=== PATIENT | female | born 1995 | race African-American/Black ===

== ENCOUNTER 2016-11-21 22:20 | Emergency (ER) | payer SELFPAY ==
[~2016-11-21] VITALS: Ht 162.6 cm; Wt 123.8 kg
[~2016-11-21 22:20] MED LIST: DIPH25CA58 PO; FAMO-63 PO; PRED50TA PO
[2016-11-21 22:28] VITALS: BP 124/83
[2016-11-21] MEDS ORDERED: TRAM-48 PO (22:43)
--- NOTE | 2016-11-21 22:43 | PHYS DOC ---
Past Medical History Past Medical History: Asthma Past Surgical History: Tonsillectomy Additional Past Surgical Histo: Adenoids. Alcohol Use: None Drug Use: None Adult General Chief Complaint Chief Complaint: LOWER EXT PAIN HPI HPI Patient is a 21 year old female who presents with an indurated area on the left medial thigh for 3 weeks. Patient denies any fever. Denies any drainage from the area. Review of Systems Review of Systems Constitutional: Denies fever or chills [] Eyes: Denies change in visual acuity, redness, or eye pain [] HENT: Denies nasal congestion or sore throat [] Musculoskeletal: Denies back pain or joint pain [] Integument: Indurated area on the left inner thigh. Neurologic: Denies headache, focal weakness or sensory changes [] Endocrine: Denies polyuria or polydipsia [] Allergies Allergies Allergies Coded Allergies Type Severity Reaction Last Updated Verified perfume Allergy Intermediate rash, swelling 05/08/16 Yes Physical Exam Physical Exam Constitutional: Well developed, well nourished, no acute distress, non-toxic appearance. [] HENT: Normocephalic, atraumatic, bilateral external ears normal, oropharynx moist, no oral exudates, nose normal. [] Skin: Left medial lower thigh with the indurated area approximately 2 x 2 centimeters, the area is firm, slightly tender to touch but not erythematous or warm. Back: No tenderness, no CVA tenderness. [] Extremities: No tenderness, no cyanosis, no clubbing, ROM intact, no edema. [] Neurologic: Alert and oriented X 3, normal motor function, normal sensory function, no focal deficits noted. [] Psychologic: Affect normal, judgement normal, mood normal. [] Current Patient Data Vital Signs Vital Signs Date Time Temp Pulse Resp B/P (MAP) Pulse Ox O2 Delivery O2 Flow Rate FiO2 11/21/16 22:28 98.7 81 16 97 Room Air 98.7 11/21/16 22:28 124/83 (97) EKG EKG [] Radiology/Procedures Radiology/Procedures [] Course & Med Decision Making Course & Med Decision Making Pertinent Labs and Imaging studies reviewed. (See chart for details) Patient has what appears to be a cyst on the left inner thigh. Discharged with instructions to follow-up with a wood tile installer. Warm compresses recommended to the area. Ultram for pain. Boost[employer] was updated Dragon Disclaimer Dragon Disclaimer This electronic medical record was generated, in whole or in part, using a voice recognition dictation system. Departure Departure Impression: Primary Impression: Dermoid cyst of left lower extremity Disposition: HOME, SELF-CARE Condition: STABLE Referrals: NO PCP (PCP) DAY BAINS MD follow up in one week Patient Instructions: Cyst Removal Additional Instructions: You were seen with a swollen area on the left inner thigh suspicious of a cyst. Follow-up with the provided wood tile installer in one week. Take the prescribed medicines as needed for pain. Apply warm compresses to the area twice a day. Scripts Tramadol Hcl (ULTRAM) 50 Mg Tablet 1 TAB PO Q6HRS, #30 TAB Prov: KALIE LÓPEZ APRN 11/21/16 KALIE LÓPEZ APRN Nov 21, 2016 22:43
[2016-11-21] MEDS ORDERED: DIPHTH,PERTUSS(ACELL),TET TOX 0.5 ML DISP.SYRIN. VAX IM ONE (23:00)
== END 2016-11-21 22:46 | disposition home or self-care (01) ==
LOC: ER 22:20
DX: D36.7 Benign neoplasm of other specified sites (principal); J45.909 Unspecified asthma, uncomplicated; Z91.09 Other allergy status, other than to drugs and biological substances
CPT/HCPCS: 90471; 90715; 99283-25

== ENCOUNTER → 2017-01-13 | Emergency (ER) | payer SELFPAY ==
[~2017-01-13] VITALS: Ht 162.6 cm; Wt 129.3 kg
[~2017-01-13] MED LIST changes: +NAPR500T3 PO; +TRAM-48 PO
[2017-01-13 11:08] VITALS: BP 131/81
--- NOTE | 2017-01-13 11:57 | RAD ---
Exam performed: 3 views right index finger including single view hand. History: Patient caught index finger in the door handle with right finger pain. Date of service: 01/13/17. Comparison: None available 3 views right index finger including single view hand findings: Normal alignment is preserved. There is no acute fracture or dislocation. No soft tissue swelling or foreign body seen. Impression: Negative exam.
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
== END | disposition home or self-care (01) ==
LOC: ER 11:01
DX: S60.021A Contusion of right index finger without damage to nail, initial encounter (principal); Z91.048 Other nonmedicinal substance allergy status; W23.0XXA Caught, crushed, jammed, or pinched between moving objects, initial encounter; Y93.89 Activity, other specified; Y92.69 Other specified industrial and construction area as the place of occurrence of the external cause; Y99.8 Other external cause status
CPT/HCPCS: 73140; 99282; 99284

== ENCOUNTER 2017-03-08 07:11 | Emergency (ER) | payer OTHER ==
[~2017-03-08] VITALS: Ht 162.6 cm; Wt 123.8 kg
[~2017-03-08 07:11] MED LIST changes: -NAPR500T3 PO; +NAPR500T4 PO
[2017-03-08 07:20] VITALS: BP 130/82
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
[2017-03-08] MEDS ORDERED: CYCL10TA2 PO (08:52)
[2017-03-08] MEDS ORDERED: NAPR-695 PO (08:52)
== END 2017-03-08 09:05 | disposition home or self-care (01) ==
LOC: ER 07:11
DX: S00.83XA Contusion of other part of head, initial encounter (principal); Z91.048 Other nonmedicinal substance allergy status; V47.5XXA Car driver injured in collision with fixed or stationary object in traffic accident, initial encounter; Y93.I9 Activity, other involving external motion; Y92.410 Unspecified street and highway as the place of occurrence of the external cause; Y99.8 Other external cause status
CPT/HCPCS: 70486; 81025; 99284-25

== ENCOUNTER 2017-04-29 01:10 | Emergency (ER) | payer SELFPAY ==
[~2017-04-29] VITALS: Ht 162.6 cm; Wt 124.7 kg
[~2017-04-29 01:10] MED LIST changes: +CYCL10TA2 PO; +NAPR-695 PO
[2017-04-29 01:19] VITALS: BP 148/91
[2017-04-29] MEDS ORDERED: NAPR-683 PO (01:26)
[2017-04-29] MEDS ORDERED: CLIN300C8 PO (01:26)
[2017-04-29] MEDS ORDERED: HYDR-2758 PO (01:26)
--- NOTE | 2017-04-29 01:26 | PHYS DOC ---
Past Medical History Past Medical History: No Pertinent History Additional Past Medical Histor: sickle cell trait Past Surgical History: Tonsillectomy Additional Past Surgical Histo: Adenoids. Smoking: Cigarettes Alcohol Use: None Drug Use: None Adult General Chief Complaint Chief Complaint: DENTAL PROBLEM [facility] HPI Patient is a pleasant otherwise healthy 22-year-old female presents with increasing dental pain in the left lower jaw on the began more than 4 weeks ago. Patient noted decreased enamel to the lower portion of her left teeth on the lower jaw with localized tenderness to palpation with hot and cold foods. She denies any swelling to her face, denies any fevers, change in voice, ear pain, radiation to her neck. It is throbbing and comes and goes with no evidence of any other symptoms. Patient is new to the area has no primary care doctor Review of Systems Review of Systems Constitutional: Denies fever or chills [] Eyes: Denies change in visual acuity, redness, or eye pain [] HENT: Denies nasal congestion or sore throat [] Respiratory: Denies cough or shortness of breath [] Cardiovascular: No additional information not addressed in HPI [] GI: Denies abdominal pain, nausea, vomiting, bloody stools or diarrhea [] : Denies dysuria or hematuria [] Musculoskeletal: Denies neck pain or joint pain Integument: Denies rash or skin lesions [] Neurologic: Denies headache, focal weakness or sensory changes [] All other systems were reviewed and found to be within normal limits, except as documented in this note. Allergies Allergies Allergies Coded Allergies Type Severity Reaction Last Updated Verified perfume Allergy Intermediate rash, swelling 05/08/16 Yes Physical Exam Physical Exam Vital signs recorded on the chart patient noted to be mildly hypertensive Constitutional: Well developed, well nourished, no acute distress, non-toxic appearance. [] HENT: Normocephalic, atraumatic, bilateral external ears normal, oropharynx moist, no oral exudates, nose normal. Patient has a dental caries at tooth #18 with significant erosion to the enamel exposing the pulp. There is no evidence of gingivitis or gingival inflammation abscess or fluid collection patient has tenderness to palpation over the pulp percussion of the tooth[] Neck: Normal range of motion, no tenderness, supple, no stridor. [] Cardiovascular:Heart rate regular rhythm, no murmur [] Lungs & Thorax: Bilateral breath sounds clear to auscultation [] Skin: Warm, dry, no erythema, no rash. [] Neurologic: Alert and oriented X 3, Psychologic: Affect normal, judgement normal, mood normal. [] EKG EKG [] Radiology/Procedures Radiology/Procedures [] Course & Med Decision Making Course & Med Decision Making Pertinent Labs and Imaging studies reviewed. (See chart for details) []She presents with erosion to the enamel and obvious dental carry with pulpitis without abscess formation of the gingival area. Patient will be given a course of antibiotics and dental referral follow-up along with analgesics. discharge: I've spoken with the patient and/or caregivers. I've explained the patient's condition, diagnosis and treatment plan based on information available to me at this time. I've answered the patient's and/or caregivers questions and addressed any concerns. The patient and/or caregivers have a good understanding the patient's diagnosis, condition and treatment plan as can be expected at this point. Vital signs have been stabilized. The patient's condition is stable for discharge from the emergency department. The patient will pursue further outpatient evaluation with her primary care provider or other designated consulting physician as outlined in the discharge instructions. Patient and/or caregivers are agreeable to this plan of care and follow-up instructions have been explained in detail. The patient and/or caregivers have received these instructions in written format and expressed understanding of these discharge instructions. The patient and her caregivers are aware that if any significant change in condition or worsening of symptoms should prompt him to immediately return to this of the closest emergency department. If an emergent department is not readily available I would encourage him to call 911. Goldie Disclaimer Goldie Disclaimer This electronic medical record was generated, in whole or in part, using a voice recognition dictation system. Departure Departure Impression: Primary Impression: Dental caries Additional Impression: Dental caries into pulp Disposition: 01 HOME, SELF-CARE Condition: STABLE Referrals: NO PCP (PCP) Patient Instructions: Dental Caries, Dental Pain, Diet and Dental Disease, Hypertension Additional Instructions: discharge: I've spoken with the patient and/or caregivers. I've explained the patient's condition, diagnosis and treatment plan based on information available to me at this time. I've answered the patient's and/or caregivers questions and addressed any concerns. The patient and/or caregivers have a good understanding the patient's diagnosis, condition and treatment plan as can be expected at this point. Vital signs have been stabilized. The patient's condition is stable for discharge from the emergency department. The patient will pursue further outpatient evaluation with her primary care provider or other designated consulting physician as outlined in the discharge instructions. Patient and/or caregivers are agreeable to this plan of care and follow-up instructions have been explained in detail. The patient and/or caregivers have received these instructions in written format and expressed understanding of these discharge instructions. The patient and her caregivers are aware that if any significant change in condition or worsening of symptoms should prompt him to immediately return to this of the closest emergency department. If an emergent department is not readily available I would encourage him to call 911. Scripts Naproxen (NAPROSYN) 500 Mg Tablet 1 TAB PO BID, #14 TAB 1 Refill Prov: ROB SPARKS MD 04/29/17 Hydrocodone Bit/Acetaminophen (HYDROCODONE-APAP 5-325 ) 1 Each Tablet 1-2 TAB PO PRN Q6HRS Y for PAIN for 5 Days, #10 TAB 0 Refills Prov: ROB SPARKS MD 04/29/17 Clindamycin Hcl (CLINDAMYCIN HCL) 300 Mg Capsule 1 CAP PO TID, #30 CAP Prov: ROB SPARKS MD 04/29/17 Problem Qualifiers ROB SPARKS MD Apr 29, 2017 01:26
== END 2017-04-29 01:31 | disposition home or self-care (01) ==
LOC: ER 01:10
DX: K02.9 Dental caries, unspecified (principal); D57.3 Sickle-cell trait; F17.210 Nicotine dependence, cigarettes, uncomplicated; Z91.048 Other nonmedicinal substance allergy status
CPT/HCPCS: 99283

== ENCOUNTER 2017-05-27 07:51 | Emergency (ER) | payer SELFPAY ==
[2017-05-27 08:58] LABS: INFLUENZA A PATIENT NEGATIVE (NEGATIVE); INFLUENZA B PATIENT NEGATIVE (NEGATIVE); OBC FLU VALID
== END 2017-05-27 09:40 | disposition home or self-care (01) ==
LOC: ER 07:51
DX: J06.9 Acute upper respiratory infection, unspecified (principal); D57.3 Sickle-cell trait; J45.909 Unspecified asthma, uncomplicated; Z91.048 Other nonmedicinal substance allergy status
CPT/HCPCS: 87804; 87804-59; 99284

== ENCOUNTER 2017-07-11 20:57 | Emergency (ER) | payer SELFPAY ==
[2017-07-11] MEDS ORDERED: MORPHINE SULFATE 2 MG/ML DISP.SYRIN. IV/SQ (21:45)
[2017-07-11 22:45] LABS: ADD MAN DIFF? NO
[2017-07-11 22:47] LABS: BASO % 1 % (0-3); EOS # 0.1 x10^3/uL (0.0-0.7); EOS % 1 % (0-3); HEMATOCRIT 38.4 % (36.0-47.0); HEMOGLOBIN 13.7 g/dL (12.0-15.5); LYMPH % 32 % (24-48); MEAN CORPUSCULAR HEMOGLOBIN 29 pg (25-35); MEAN CORPUSCULAR HGB CONC 36 g/dL (31-37); MEAN CORPUSCULAR VOLUME 82 fL (79-100); MONO # 0.7 x10^3/uL (0.0-1.1); MONO % 7 % (0-9); NEUT # 5.6 x10^3uL (1.8-7.7); NEUT % 59 % (31-73); PLATELET COUNT 234 x10^3/uL (140-400); RED BLOOD COUNT 4.68 x10^6/uL (3.50-5.40); RED CELL DISTRIBUTION WIDTH 13.3 % (11.5-14.5); WHITE BLOOD COUNT 9.5 x10^3/uL (4.0-11.0)
[2017-07-11 22:51] LABS: URINE HCG POC HCG NEGATIVE (Negative)
[2017-07-11 22:51] LABS: BILIRUBIN,URINE NEGATIVE (NEG); CLARITY,URINE CLEAR; COLOR,URINE YELLOW; GLUCOSE,URINE NEGATIVE (NEG); NITRITE,URINE NEGATIVE (NEG); PROTEIN,URINE NEGATIVE (NEG-TRACE)
[2017-07-11 22:56] LABS: BACTERIA,URINE 0 /HPF (0-FEW); RBC,URINE OCC /HPF (0-2); SQUAMOUS EPITHELIAL CELL,UR MOD /LPF; WBC,URINE 0 /HPF (0-4)
[2017-07-11] MEDS: ONDANSETRON PF 4 MG/2 ML VIAL. IV (22:57)
[2017-07-11] MEDS: IV NORMAL SALINE 1000ML BAG 1,000 ML IV (22:58)
[2017-07-11 23:00] LABS: INR 1.2 (0.8-1.1); PARTIAL THROMBOPLASTIN TIME 28 SEC (24-38); PROTHROMBIN TIME PATIENT 14.5 SEC (11.7-14.0)
[2017-07-11 23:01] LABS: ANION GAP 8 (6-14); BLOOD UREA NITROGEN 11 mg/dL (7-20); CALCIUM 8.3 mg/dL (8.5-10.1); CARBON DIOXIDE 25 mmol/L (21-32); CHLORIDE 106 mmol/L (98-107); GFR 84.7; GLUCOSE 127 mg/dL (70-99); POTASSIUM 3.9 mmol/L (3.5-5.1); SODIUM 139 mmol/L (136-145)
[2017-07-11 23:07] LABS: ALBUMIN 3.3 g/dL (3.4-5.0); ALK PHOS 80 U/L (46-116); ALT (SGPT) 26 U/L (14-59); AST (SGOT) 17 U/L (15-37); DIRECT BILIRUBIN 0.1 mg/dL (0.0-0.2); LIPASE 91 U/L (73-393); TOTAL BILIRUBIN 0.4 mg/dL (0.2-1.0); TOTAL PROTEIN 7.3 g/dL (6.4-8.2)
[2017-07-11 23:26] LABS: CKMB MASS 1.6 ng/mL (0.0-3.6); CREATINE KINASE 158 U/L (26-192)
== END 2017-07-12 00:45 | disposition home or self-care (01) ==
LOC: ER 07-12 00:45
DX: R11.2 Nausea with vomiting, unspecified (principal); R19.7 Diarrhea, unspecified; D57.3 Sickle-cell trait; J45.909 Unspecified asthma, uncomplicated; Z91.048 Other nonmedicinal substance allergy status
CPT/HCPCS: 36415; 80048; 80076; 81001; 81025; 82553; 83690; 85025; 85610; 85730; 93005; 96361; 96374; 99285-25; J2405; J7030

== ENCOUNTER 2017-09-02 21:36 | Emergency (ER) | payer SELFPAY ==
[2017-09-02] MEDS: predniSONE 20 MG TABLET PO (21:57)
[2017-09-02] MEDS: diphenhydrAMINE HCL 25 MG CAPSULE PO (21:57)
[2017-09-02] MEDS: EPINEPHrine 1 MG/ML VIAL IM (22:00)
== END 2017-09-02 23:01 | disposition home or self-care (01) ==
LOC: ER 21:36
DX: T65.891A Toxic effect of other specified substances, accidental (unintentional), initial encounter (principal); L50.8 Other urticaria; D57.3 Sickle-cell trait; J45.909 Unspecified asthma, uncomplicated; Z91.048 Other nonmedicinal substance allergy status; Y92.89 Other specified places as the place of occurrence of the external cause
CPT/HCPCS: 96372; 99283; J0171; J7512; Q0163

== ENCOUNTER 2017-09-20 13:44 | Emergency (ER) | payer SELFPAY ==
[2017-09-20] MEDS: traMADol 50 MG TABLET PO (14:14)
== END 2017-09-20 14:35 | disposition home or self-care (01) ==
LOC: ER 14:35
DX: J06.9 Acute upper respiratory infection, unspecified (principal); H57.8 Other specified disorders of eye and adnexa; D57.3 Sickle-cell trait; J45.909 Unspecified asthma, uncomplicated; Z91.048 Other nonmedicinal substance allergy status
CPT/HCPCS: 99283

== ENCOUNTER 2017-09-28 00:28 | Emergency (ER) | payer SELFPAY ==
[2017-09-28] MEDS: predniSONE 20 MG TABLET PO (01:30)
[2017-09-28] MEDS: IPRATRPIUM/ALBUTEROL 0.5/2.5MG 3 ML NEBU. NEB (01:45)
== END 2017-09-28 02:09 | disposition home or self-care (01) ==
LOC: ER 00:28
DX: O99.511 Diseases of the respiratory system complicating pregnancy, first trimester (principal); J45.41 Moderate persistent asthma with (acute) exacerbation; O21.9 Vomiting of pregnancy, unspecified; Z91.048 Other nonmedicinal substance allergy status; Z3A.10 10 weeks gestation of pregnancy
CPT/HCPCS: 94640; 99283-25; J7512; J7620

== ENCOUNTER 2018-07-18 21:25 | Emergency (ER) | payer SELFPAY ==
[~2018-07-18] VITALS: Ht 162.6 cm; Wt 132.9 kg
[~2018-07-18 21:25] MED LIST changes: +ALBU2.5V8 IH; +CLIN300C8 PO; +GUAI600T47 PO; +HYDR-2761 PO; +NAPR-514 PO; +NAPR-683 PO; -NAPR500T4 PO; +ONDA4TAB10 SL; +PRED20TA PO
[2018-07-18 22:00] VITALS: BP 137/72
--- NOTE | 2018-07-18 23:02 | PHYS DOC ---
Past Medical History Past Medical History: Asthma Additional Past Medical Histor: sickle cell trait (KALIE LÓPEZ APRN) Past Surgical History: Tonsillectomy, Other Additional Past Surgical Histo: addenectomy (KALIE LÓPEZ APRN) Alcohol Use: None Drug Use: None (KALIE LÓPEZ APRN) Adult General Chief Complaint Chief Complaint: ANKLE PROBLEM HPI HPI Patient is a 23 year old female who presents to the ED today complaining of 10 out of 10 right ankle pain that began 2 days ago after she slipped and fell twice. Patient states she rolled her right ankle medially. Patient states the pain is worse on certain movements. Denies any loss of consciousness. (KALIE LÓPEZ APRN) Review of Systems Review of Systems Constitutional: Denies fever or chills [] Musculoskeletal: Reports right ankle pain Integument: Denies rash or skin lesions [] Neurologic: Denies headache, focal weakness or sensory changes [] All other systems were reviewed and found to be within normal limits, except as documented in this note. (KALIE LÓPEZ APRN) Allergies Allergies Allergies Coded Allergies Type Severity Reaction Last Updated Verified perfume Allergy Intermediate rash, swelling 05/08/16 Yes (VALERIE PATE DO) Physical Exam Physical Exam Constitutional: Well developed, well nourished, no acute distress, non-toxic appearance. [] Back: No tenderness, no CVA tenderness. [] Extremities: Right ankle with no obvious deformity. Slight tenderness on palpation of the right lateral ankle, small amount of soft tissue swelling noted on the right anterior ankle. Full range of motion to the right ankle including flexion and extension of the ankle. +2 right pedal pulse. Cap refill less than 2 seconds the right lower extremity. Sensation intact. Neurologic: Alert and oriented X 3, normal motor function, normal sensory function, no focal deficits noted. [] Psychologic: Affect normal, judgement normal, mood normal. [] (KALIE LÓPEZ APRN) Current Patient Data Vital Signs Vital Signs Date Time Temp Pulse Resp B/P (MAP) Pulse Ox O2 Delivery O2 Flow Rate FiO2 07/18/18 22:00 98.4 108 18 137/72 (93) 97 Room Air 98.4 (VALERIE PATE DO) EKG EKG [] (KALIE LÓPEZ APRN) Radiology/Procedures Radiology/Procedures [] (KALIE LÓPEZ APRN) Radiology/Procedures PROCEDURE: ANKLE RIGHT 3V ANKLE RIGHT 3V History: Twisted right ankle 2 days ago, pain Comparison: None. Findings: 3 views right ankle are submitted. No acute fracture or dislocation is identified. Impression: 1. No acute osseous abnormality is identified. Electronically signed by: Geronimo Huynh MD (07/18/2018 11:12 PM) [facility]- (VALERIE PATE DO) Course & Med Decision Making Course & Med Decision Making Pertinent Labs and Imaging studies reviewed. (See chart for details) This is a 23-year-old female patient presenting to the ED today with right ankle pain status post falling 2 days ago, right ankle x-rays are negative for any acute findings. Ice/elevation encouraged. OTC pain relievers. Air cast provided in the ED applied by the ED RN, neurovascular exam is intact. Follow- up with orthopedic doctor in 1-2 weeks. (KALIE LÓPEZ APRN) Dragon Disclaimer Dragon Disclaimer This electronic medical record was generated, in whole or in part, using a voice recognition dictation system. (KALIE LÓPEZ APRN) Departure Departure Impression: Primary Impression: Right ankle sprain Additional Impression: Fall Disposition: HOME, SELF-CARE Condition: STABLE Referrals: NO PCP (PCP) HIEU LAL II, MD follow up in 1-2 weeks Patient Instructions: Ankle Sprain, Acute, with Phase I Rehab-SportsMed Additional Instructions: You have right ankle sprain. Wear the air cast provided as needed and tolerated. Ice and elevate the extremity. Take Tylenol/ Motrin for pain. Follow up with the provided orthopedic doctor in 1-2 weeks. Attending Signature Attending Signature I have reviewed the PA/DENTAL INSTRUCTOR's note and plan of care. I was available for consultation as needed during the patient's visit in the emergency department. I agree with the clinical impression, plan, and disposition. (VALERIE PATE DO) Problem Qualifiers Primary Impression: Right ankle sprain Encounter type: initial encounter Involved ligament of ankle: unspecified ligament Qualified Codes: S93.401A - Sprain of unspecified ligament of right ankle, initial encounter Additional Impression: Fall Encounter type: initial encounter Qualified Codes: W19.XXXA - Unspecified fall, initial encounter KALIE LÓPEZ APRN Jul 18, 2018 23:02 VALERIE PATE DO Jul 19, 2018 04:32
--- NOTE | 2018-07-18 23:15 | RAD ---
ANKLE RIGHT 3V History: Twisted right ankle 2 days ago, pain Comparison: None. Findings: 3 views right ankle are submitted. No acute fracture or dislocation is identified. Impression: 1. No acute osseous abnormality is identified. Electronically signed by: Geronimo Huynh MD (07/18/2018 11:12 PM) [facility]
== END 2018-07-18 23:17 | disposition home or self-care (01) ==
LOC: ER 21:25
DX: S93.491A Sprain of other ligament of right ankle, initial encounter (principal); J45.909 Unspecified asthma, uncomplicated; Z90.89 Acquired absence of other organs; D57.3 Sickle-cell trait; Z91.09 Other allergy status, other than to drugs and biological substances; W01.0XXA Fall on same level from slipping, tripping and stumbling without subsequent striking against object, initial encounter; Y93.89 Activity, other specified; Y92.89 Other specified places as the place of occurrence of the external cause; Y99.8 Other external cause status
CPT/HCPCS: 29515; 73610; 99283

== ENCOUNTER 2019-01-10 09:06 | Emergency (ER) | payer SELFPAY ==
[~2019-01-10] VITALS: Ht 162.6 cm; Wt 140.6 kg
[2019-01-10 09:10] VITALS: BP 138/94
--- NOTE | 2019-01-10 09:32 | PHYS DOC ---
Past Medical History Past Medical History: Asthma Additional Past Medical Histor: sickle cell trait Past Surgical History: Tonsillectomy, Other Additional Past Surgical Histo: addenectomy Alcohol Use: None Drug Use: None Adult General Chief Complaint Chief Complaint: ANKLE PROBLEM HPI HPI Patient is a 23 year old female with no significant medical history presents to the ED today complaining of mild right lateral ankle pain that began yesterday after she stepped into a ditch while talking, and playing on her phone. She states she was doing too much while walking. Patient describes the pain as sharp and intermittent worse on touching the right lateral ankle. She states immobilization has been removing some of the pain. Review of Systems Review of Systems Constitutional: Denies fever or chills [] Musculoskeletal: Reports right lateral ankle pain Integument: Denies rash or skin lesions [] Neurologic: Denies headache, focal weakness or sensory changes [] All other systems were reviewed and found to be within normal limits, except as documented in this note. Allergies Allergies Allergies Coded Allergies Type Severity Reaction Last Updated Verified perfume Allergy Intermediate rash, swelling 05/08/16 Yes Physical Exam Physical Exam Constitutional: Well developed, well nourished, no acute distress, non-toxic ap pearance. [] Skin: Warm, dry, no erythema, no rash. [] Back: No tenderness, no CVA tenderness. [] Extremities: Right ankle with no obvious deformity. Mild soft tissue swelling noted on the right lateral ankle. Full range of motion to the right ankle and foot. Tenderness on palpation of the right lateral. +2 right pedal pulse. Cap refill less than 2 seconds the right toes. Sensation intact to the right foot. Neurologic: Alert and oriented X 3, normal motor function, normal sensory function, no focal deficits noted. [] Psychologic: Affect normal, judgement normal, mood normal. [] Current Patient Data Vital Signs Vital Signs Date Time Temp Pulse Resp B/P (MAP) Pulse Ox O2 Delivery O2 Flow Rate FiO2 01/10/19 09:10 98.5 86 20 138/94 (109) 97 Room Air 98.5 EKG EKG [] Radiology/Procedures Radiology/Procedures []PROCEDURE: ANKLE RIGHT 3V ANKLE RIGHT 3V History: Ankle pain. History of trauma. Technique: 3 views right ankle. Comparison: July 18, 2018 Findings: Normal alignment. Symmetric ankle mortise. Lucency within the medial talar dome. No acute fracture. Mild ankle soft tissue swelling. Impression: 1. Lucency within the medial talar dome, may represent osteochondral injury, similar compared to prior. 2. Ankle soft tissue swelling. Electronically signed by: Lalitha Jackson DO (01/10/2019 9:54 AM) [facility] DICTATED and SIGNED BY: LALITHA JACKSON DO DATE: 01/10/19 0954 Course & Med Decision Making Course & Med Decision Making Pertinent Labs and Imaging studies reviewed. (See chart for details) This is a 23-year-old female patient presenting to the ED with right ankle pain that began yesterday after she stepped in a ditch. Right ankle x-rays interpreted by radiologist were noted for lucency within the medial talar dome, may represent osteochondral injury, similar compared to prior and ankle soft tissue swelling. Aircast applied to the right ankle by the ED RN, neurovascular exam is intact. Ice elevation encouraged. OTC pain relievers. Follow-up with orthopedic doctor in one week. Dragon Disclaimer Dragon Disclaimer This electronic medical record was generated, in whole or in part, using a voice recognition dictation system. Departure Departure Impression: Primary Impression: Right ankle sprain Disposition: HOME, SELF-CARE Condition: STABLE Referrals: NO PCP (PCP) QUINCY GONZALES MD follow up in 1 week Patient Instructions: Ankle Sprain, [id number] Additional Instructions: You were evaluated in the medicines for right ankle pain, your right ankle x-ray were negative for any acute findings. You do have an old injury to the right ankle that needs to be followed up with an orthopedic doctor. Try to ice and el evate the extremity. Wear the air cast provided as tolerated. Take [id number] pain relievers as needed for pain. Problem Qualifiers Primary Impression: Right ankle sprain Encounter type: initial encounter Involved ligament of ankle: unspecified ligament Qualified Codes: S93.401A - Sprain of unspecified ligament of right ankle, initial encounter KALIE LÓPEZ CONDITIONER TUMBLER Jan 10, 2019 09:32
--- NOTE | 2019-01-10 09:57 | RAD ---
ANKLE RIGHT 3V History: Ankle pain. History of trauma. Technique: 3 views right ankle. Comparison: July 18, 2018 Findings: Normal alignment. Symmetric ankle mortise. Lucency within the medial talar dome. No acute fracture. Mild ankle soft tissue swelling. Impression: 1. Lucency within the medial talar dome, may represent osteochondral injury, similar compared to prior. 2. Ankle soft tissue swelling. Electronically signed by: Marques Medina DO (01/10/2019 9:54 AM) [facility]
== END 2019-01-10 10:23 | disposition home or self-care (01) ==
LOC: ER 09:06
DX: S93.401A Sprain of unspecified ligament of right ankle, initial encounter (principal); J45.909 Unspecified asthma, uncomplicated; Z88.8 Allergy status to other drugs, medicaments and biological substances; W17.89XA Other fall from one level to another, initial encounter; Y93.01 Activity, walking, marching and hiking; Y92.89 Other specified places as the place of occurrence of the external cause; Y99.8 Other external cause status
CPT/HCPCS: 29515; 73610; 99284

== ENCOUNTER 2019-05-23 20:28 | Emergency (ER) | payer SELFPAY ==
[~2019-05-23] VITALS: Ht 162.6 cm; Wt 138.8 kg
[~2019-05-23 20:28] MED LIST changes: -ALBU2.5V8 IH; +PROVENTIL HFA6.7 GM IH
[2019-05-23 21:10] VITALS: BP 139/87
[2019-05-23] MEDS: TETRAHYDROZOLINE 0.05% OPHTH SOLUTION 15ML BOTTLE. OU ONE (22:30)
--- NOTE | 2019-05-23 23:12 | PHYS DOC ---
Past Medical History Past Medical History: Asthma Additional Past Medical Histor: sickle cell trait (KALIE LÓPEZ APRN) Past Surgical History: Tonsillectomy, Other Additional Past Surgical Histo: addenectomy (KALIE LÓPEZ APRN) Alcohol Use: None Drug Use: None (KALIE LÓPEZ APRN) Attending Signature I have participated in the care of this patient and I have reviewed and agree with all pertinent clinical information above including history, exam, and recommendations. (PARISA KING MD) Adult General Chief Complaint Chief Complaint: COUGH HPI HPI Patient is a 24 year old female who presents to the ED today with cough, sore throat, bilateral itchy eyes, symptoms for week. She reports she was seen at [facility] a couple days ago and was told she has an upper respiratory infection. Patient denies any fever. (KALIE LÓPEZ APRN) Review of Systems Review of Systems Constitutional: Denies any fever Eyes: Denies change in visual acuity, reports bilateral eye itching HENT: Reports sore throat. Denies nasal congestion Respiratory: Reports cough, denies shortness of breath [] Cardiovascular: No additional information not addressed in HPI [] GI: Denies abdominal pain, nausea, vomiting, bloody stools or diarrhea [] : Denies dysuria or hematuria [] Musculoskeletal: Denies back pain or joint pain [] Integument: Denies rash or skin lesions [] Neurologic: Denies headache, focal weakness or sensory changes [] Endocrine: Denies polyuria or polydipsia [] All other systems were reviewed and found to be within normal limits, except as documented in this note. (KALIE LÓPEZ APRN) Current Medications Current Medications Current Medications Medications (Trade) Dose Ordered Sig/Holly Start Time Stop Time Status Last Admin Dose Admin Tetrahydrozoline HCl (Murine) 1 drop 1X ONCE 05/23/19 22:30 05/23/19 22:31 DC 05/23/19 22:30 1 DROP (PARISA KING MD) Allergies Allergies Allergies Coded Allergies Type Severity Reaction Last Updated Verified perfume Allergy Intermediate rash, swelling 05/08/16 Yes Penicillins Allergy Unknown 05/23/19 Yes (PARISA KING MD) Physical Exam Physical Exam Constitutional: Well developed, well nourished, no acute distress, non-toxic appearance. [] HENT: Normocephalic, atraumatic, bilateral external ears normal, oropharynx moist, no oral exudates, nose normal. [] Eyes: PERRLA, EOMI, conjunctiva normal, no discharge. [] Neck: Normal range of motion, no tenderness, supple, no stridor. [] Cardiovascular:Heart rate regular rhythm, no murmur [] Lungs & Thorax: Bilateral breath sounds clear to auscultation [] Abdomen: Bowel sounds normal, soft, no tenderness, no masses, no pulsatile masses. [] Skin: Warm, dry, no erythema, no rash. [] Back: No tenderness, no CVA tenderness. [] Extremities: No tenderness, no cyanosis, no clubbing, ROM intact, no edema. [] Neurologic: Alert and oriented X 3, normal motor function, normal sensory function, no focal deficits noted. [] Psychologic: Affect normal, judgement normal, mood normal. [] (KALIE LÓPEZ APRN) Current Patient Data Vital Signs Vital Signs Date Time Temp Pulse Resp B/P (MAP) Pulse Ox O2 Delivery O2 Flow Rate FiO2 05/23/19 21:10 98.7 89 14 139/87 (104) 98 Room Air 98.7 (PARISA KING MD) Lab Values Laboratory Tests Test 05/23/19 22:44 Group A Streptococcus Rapid Negative (NEGATIVE) (PARISA KING MD) EKG EKG [] (KALIE LÓPEZ APRN) Radiology/Procedures Radiology/Procedures [] (KALIE LÓPEZ APRN) Course & Med Decision Making Course & Med Decision Making Pertinent Labs and Imaging studies reviewed. (See chart for details) This is a 24-year-old female patient presenting to the ED today with cough, sore throat, symptoms for 1 week. Also complaining of bilateral eye itching. See history of present illness. Patient's physical exam is benign, rapid strep test is negative. Discharged to home. Supportive care measures offered. (KALIE LÓPEZ APRN) Dragon Disclaimer Dragon Disclaimer This electronic medical record was generated, in whole or in part, using a voice recognition dictation system. (KALIE LÓPEZ APRN) Departure Departure Impression: Primary Impression: Upper respiratory infection Additional Impressions: Cough Pharyngitis, acute Disposition: 01 HOME, SELF-CARE Condition: STABLE Referrals: NO PCP (PCP) follow up with your doctor in 1 week Patient Instructions: Upper Respiratory Infection, Adult, [id number] Additional Instructions: You were evaluated in the emergency room with symptoms consistent of an upper respiratory infection. Take the prescribed medications as ordered. Follow-up with your doctor in 1-2 weeks. Scripts Prednisone (PREDNISONE) 50 Mg Tablet 1 TAB PO DAILY, #5 TAB Prov: KALIE LÓPEZ APRN 05/23/19 Problem Qualifiers Primary Impression: Upper respiratory infection URI type: unspecified URI Qualified Codes: J06.9 - Acute upper respiratory infection, unspecified Additional Impressions: Pharyngitis, acute Pharyngitis/tonsillitis etiology: unspecified etiology Qualified Codes: J02.9 - Acute pharyngitis, unspecified KALIE LÓPEZ APRN May 23, 2019 23:12 PARISA KING MD May 24, 2019 18:18
[2019-05-23] MEDS ORDERED: PRED50TA PO (23:15)
== END 2019-05-23 23:17 | disposition home or self-care (01) ==
LOC: ER 20:28
DX: J06.9 Acute upper respiratory infection, unspecified (principal); J02.9 Acute pharyngitis, unspecified; R05 Cough; J45.909 Unspecified asthma, uncomplicated; Z98.890 Other specified postprocedural states; Z91.048 Other nonmedicinal substance allergy status; Z88.0 Allergy status to penicillin
CPT/HCPCS: 87070; 87880; 99283

== ENCOUNTER 2019-07-09 00:41 | Emergency (ER) | payer SELFPAY ==
[~2019-07-09] VITALS: Ht 162.6 cm; Wt 140.9 kg
[2019-07-09 01:03] VITALS: BP 134/76
--- NOTE | 2019-07-09 01:21 | PHYS DOC ---
Past Medical History Past Medical History: Asthma Additional Past Medical Histor: sickle cell trait (MOHINI RUTHERFORD APRN) Past Surgical History: Tonsillectomy, Other Additional Past Surgical Histo: addenectomy (MOHINI RUTHERFORD APRN) Smoking Status: Never Smoker Alcohol Use: None Drug Use: None (MOHINI RUTHERFORD APRN) Attending Signature I have participated in the care of this patient and I have reviewed and agree with all pertinent clinical information above including history, exam, and recommendations. (PARISA KING MD) Adult General Chief Complaint Chief Complaint: Congestion HPI HPI Patient is a 24 year old AA female who presents to the emergency department with complaints of nasal congestion, chills, body aches, fatigue, headache, and dry cough since yesterday. She states that one of her friends was recently diagnosed with influenza. She denies any nausea, vomiting, diarrhea, abdominal pain, chest pain, palpitations, shortness of breath, wheezing, or sore throat. She currently rates her pain as 7 out of 10 on the pain scale, she denies any alleviating factors. Patient reports history of asthma but states she has not had to use her albuterol and denies chest tightness at this time. (MOHINI RUTHERFORD APRN) Review of Systems Review of Systems Complete ROS is negative unless otherwise noted in HPI. (MOHINI RUTHERFORD APRN) Allergies Allergies Allergies Coded Allergies Type Severity Reaction Last Updated Verified perfume Allergy Intermediate rash, swelling 05/08/16 Yes Penicillins Allergy Unknown 05/23/19 Yes (PARISA KING MD) Physical Exam Physical Exam See Above Constitutional: Well developed, well nourished, no acute distress, ill appearance, morbidly obese HENT: Normocephalic, atraumatic, bilateral external ears normal, bilateral TMs normal, posterior pharynx normal oropharynx moist, nose congested with erythema and edema of the nasal turbinates bilaterally Eyes: PERRLA, conjunctiva injected bilaterally, no discharge. [] Neck: Normal range of motion, no stridor. [] Cardiovascular:Heart rate regular rhythm, no murmur [] Lungs & Thorax: Bilateral breath sounds clear to auscultation, Respirations even and unlabored, no retractions, no respiratory distress Skin: Warm, dry, no erythema, no rash. [] Back: No tenderness Extremities: No cyanosis, ROM intact Neurologic: Alert and oriented X 3, no focal deficits noted. [] Psychologic: Affect normal, judgement normal, mood normal. (MOHINI RUTHERFORD APRN) Current Patient Data Vital Signs Vital Signs Date Time Temp Pulse Resp B/P (MAP) Pulse Ox O2 Delivery O2 Flow Rate FiO2 07/09/19 01:03 98.5 89 18 134/76 (95) 98 Room Air 98.5 (PARISA KING MD) EKG EKG [] (MOHINI RUTHERFORD APRN) Radiology/Procedures Radiology/Procedures [] (MOHINI RUTHERFORD APRN) Course & Med Decision Making Course & Med Decision Making Pertinent Labs and Imaging studies reviewed. (See chart for details) dx: medical screening exam A medical screening exam was performed, patient was found to have no emergent medical condition. The plan of care would've included a prescription for Tamiflu and flu supportive care measures instructions. However, the patient eloped after talking with registration. [] [] (MOHINI RUTHERFORD APRN) Dragon Disclaimer Dragon Disclaimer This electronic medical record was generated, in whole or in part, using a voice recognition dictation system. (MOHINI RUTHERFORD APRN) Departure Departure Impression: Primary Impression: Encounter for medical screening examination Disposition: HOME, SELF-CARE (Pt eloped after speaking with registration. ) Condition: STABLE Referrals: NO PCP (PCP) MOHINI RUTHERFORD APRN Jul 09, 2019 01:21 PARISA KING MD Jul 09, 2019 04:11
== END 2019-07-09 01:45 | disposition home or self-care (01) ==
LOC: ER 00:51
DX: R09.81 Nasal congestion (principal); M79.10 Myalgia, unspecified site; R51 Headache; R53.83 Other fatigue; R05 Cough; R68.83 Chills (without fever); J45.909 Unspecified asthma, uncomplicated; Z88.0 Allergy status to penicillin; Z88.8 Allergy status to other drugs, medicaments and biological substances
CPT/HCPCS: 99281

== ENCOUNTER 2020-12-15 09:05 | Emergency (ER) | payer SELFPAY ==
[~2020-12-15 09:05] MED LIST changes: -CLIN300C8 PO; +CLIN300C9 PO
== END 2020-12-15 10:35 | disposition left against medical advice (07) ==
LOC: ER 09:05
DX: R06.02 Shortness of breath (principal); R05 Cough; Z53.21 Procedure and treatment not carried out due to patient leaving prior to being seen by health care provider